=== PATIENT | female | born 1950 | race Caucasian/White ===

== ENCOUNTER → 2019-06-26 11:26 | Outpatient (CLI) | payer MEDICARE, SELFPAY ==
--- NOTE | ~2019-06-26 | MM_ITS ---
EXAMINATION: MM screening [facility] BI w jeison HISTORY: Screening mammogram TECHNIQUE: Craniocaudal and mediolateral oblique 3-D tomosynthesis images were obtained and synthetic 2-D images were generated. CAD analysis was submitted and interpreted. COMPARISON: Comparison to multiple prior studies sequentially, with oldest reviewed study dated 07/2013. BREAST PARENCHYMAL COMPOSITION: There are scattered areas of fibroglandular density. FINDINGS: There are benign bilateral breast calcifications. There is no evidence of suspicious mass, calcification, or architectural distortion to suggest malignancy in either breast. There has been no suspicious interval change. IMPRESSION: 1. No mammographic evidence of malignancy. 2. Recommend routine screening mammography in one year. BI-RADS Category 2: Benign finding(s). Reviewed, dictated and finalized at location A.
== END ==
PROVIDERS: PCP Family Medicine; Visit Provider Obstetrics & Gynecology
DX: Z12.31 Encounter for screening mammogram for malignant neoplasm of breast (principal)
CPT/HCPCS: 77063; 77067

== ENCOUNTER → 2020-08-22 13:22 | Outpatient (CLI) | payer MEDICARE, SELFPAY ==
--- NOTE | ~2020-08-22 | MM_ITS ---
EXAMINATION: MM screening [facility] BI w jeison HISTORY: Screening TECHNIQUE: Craniocaudal and mediolateral oblique 3-D tomosynthesis images were obtained and synthetic 2-D images were generated. CAD analysis was submitted and interpreted. COMPARISON: Comparison to multiple prior studies sequentially, with oldest reviewed study dated 12/2013. BREAST PARENCHYMAL COMPOSITION: Breast composed of scattered areas of fibroglandular density. FINDINGS: There are benign bilateral breast calcifications. There is no evidence of suspicious mass, calcification, or architectural distortion to suggest malignancy in either breast. There has been no suspicious interval change. IMPRESSION: 1. No mammographic evidence of malignancy. 2. Recommend routine screening mammography in one year. BI-RADS Category 2: Benign finding(s). Reviewed, dictated and finalized at location A.
== END ==
PROVIDERS: PCP Family Medicine; Visit Provider Obstetrics & Gynecology
DX: Z12.31 Encounter for screening mammogram for malignant neoplasm of breast (principal)
CPT/HCPCS: 77063; 77067

== ENCOUNTER → 2020-12-26 10:40 | Outpatient (CLI) | payer MEDICARE, SELFPAY ==
--- NOTE | ~2020-12-26 | XR_ITS ---
XR knee RT min 4V, XR knee LT min 4V 12/26/2020 11:09 Indication: Knee pain Procedure: 4 views each knee Comparison: No prior studies for comparison. Findings: No fracture, subluxation or dislocation. No significant joint space narrowing. No joint eff usion. Normal anatomic alignment. Impression: 1: No significant bone or joint abnormality. Reviewed, dictated and finalized at location A. Impression: 1: No significant bone or joint abnormality. Impression: 1: No significant bone or joint abnormality.
== END ==
PROVIDERS: PCP Family Medicine; Visit Provider Family Medicine
DX: M25.562 Pain in left knee (principal); M25.561 Pain in right knee
CPT/HCPCS: 73564

== ENCOUNTER → 2021-08-24 12:33 | Outpatient (CLI) | payer MEDICARE, SELFPAY ==
--- NOTE | ~2021-08-24 | MM_ITS ---
EXAMINATION: MM screening [facility] BI w jeison HISTORY: Screening mammogram TECHNIQUE: Craniocaudal and mediolateral oblique 3-D tomosynthesis images were obtained and synthetic 2-D images were generated. CAD analysis was submitted and interpreted. COMPARISON: 08/22/2020, 06/26/2019, 06/13/2018 BREAST PARENCHYMAL COMPOSITION: There are scattered areas of fibroglandular density. FINDINGS: Scattered benign-appearing calcifications are present. There is no suspicious mass, calcifi cation, or architectural distortion to suggest malignancy in either breast. There has been no suspici ous interval change. IMPRESSION: 1. No mammographic evidence of malignancy. 2. Recommend routine screening mammography in one year. BI-RADS Category 2: Benign finding(s). Reviewed, dictated and finalized at location A.
== END ==
PROVIDERS: PCP Family Medicine; Visit Provider Obstetrics & Gynecology
DX: Z12.31 Encounter for screening mammogram for malignant neoplasm of breast (principal)
CPT/HCPCS: 77063; 77067

== ENCOUNTER → 2021-09-13 09:29 | Outpatient (CLI) | payer MEDICARE, SELFPAY ==
--- NOTE | ~2021-09-13 | MR_ITS ---
EXAMINATION: MR knee LT wo con DATE: 09/13/2021 10:08 INDICATION: Left knee pain. TECHNIQUE: Magnetic resonance imaging (MRI) of the left knee was performed without intravenous contra st. Sequences included axial PD-weighted FS FSE, coronal PD-weighted FSE and PD-weighted FS FSE, sagi ttal PD-weighted FSE, and sagittal T2-weighted FS FSE. COMPARISON: Left knee radiographs 12/26/2020 FINDINGS: Medial compartment: Medial meniscus is intact. There is cartilage surface irregularity of tibial condyle femoral condyle. There are tiny osteophytes. Lateral compartment: Lateral meniscus is normal. Lateral compartment cartilage is normal. There are tiny osteophytes. Patellofemoral compartment: There is cartilage surface irregularity of patellar lateral facet. There is cartilage surface irregul arity of trochlea. Ligaments and tendons: The anterior and posterior cruciate ligaments are normal. Medial collateral ligament is normal. There are changes of prior sprain of fibular collateral ligament characterized by thickening and increased signal intensity approximately. There is mild patellar tendinopathy. Fluid: There is no knee joint effusion. There is a moderate-sized Carter's cyst. There is mild prepatellar an d superficial infrapatellar bursitis. IMPRESSION: 1. Mild chondrosis of medial and patellofemoral compartments. 2. Moderate-sized Carter's cyst. Reviewed, dictated and finalized at location A.
== END ==
PROVIDERS: PCP Family Medicine; Visit Provider Orthopaedic Surgery
DX: M71.22 Synovial cyst of popliteal space [Baker], left knee (principal); M71.562 Other bursitis, not elsewhere classified, left knee
CPT/HCPCS: 73721

== ENCOUNTER → 2022-05-04 08:44 | Outpatient (CLI) | payer MEDICARE, SELFPAY ==
--- NOTE | ~2022-05-04 | MMUS_ITS ---
EXAMINATION: MM diagnostic [facility] RT w jeison, US breast RT limited HISTORY: Palpable right breast abnormality TECHNIQUE: Additional 3-D tomosynthesis images of the right breast were performed and synthetic 2-D i mages were generated. CAD analysis was submitted and interpreted. High resolution Limited right breas t ultrasound was performed. COMPARISON: Comparison to multiple prior studies sequentially, with oldest reviewed study dated 05/26. BREAST PARENCHYMAL COMPOSITION: Breast composed of scattered areas of fibroglandular density FINDINGS: MAMMOGRAPHIC FINDINGS: The right breast is stable. No new masses, calcifications or architectural distortion in the right br east to suggest malignancy. ULTRASOUND: Limited right breast ultrasound: Normal heterogeneous echotexture in the area of palpable concern. No suspicious discrete solid or cystic mass. IMPRESSION: 1. No evidence for malignancy in the right breast. 2. Routine yearly screening mammogram and regular clinical breast examination are recommended. BI-RADS Category 2: Benign finding(s). Reviewed, dictated and finalized at location A. COLLECTOR IMPRESSION: 1. No evidence for malignancy in the right breast. 2. Routine yearly screening mammogram and regular clinical breast examination a re recommended. BI-RADS Category 2: Benign finding(s).
== END ==
PROVIDERS: PCP Family Medicine; Visit Provider Obstetrics & Gynecology
DX: N63.15 Unspecified lump in the right breast, overlapping quadrants (principal)
CPT/HCPCS: 76642; 77061; 77065; G0279

== ENCOUNTER → 2022-10-15 16:19 | Outpatient (CLI) | payer MEDICARE, SELFPAY ==
--- NOTE | ~2022-10-15 | XR_ITS ---
EXAMINATION: XR_[id number]_CR DATE: 10/15/2022 16:31 INDICATION: Neck pain. TECHNIQUE: 5 views of cervical spine were obtained. COMPARISON: None. FINDINGS: There is 2 mm anterolisthesis of C4 on C5 and 2 mm retrolisthesis of C5 on C6 and C6 on C7. There is 6 degrees dextrocurvature of cervical spine. Vertebral body heights are normal. There is mi ldly decreased disc height at C4-C5 and severely decreased disc height at C5-C6 and C6-C7. There is m ultilevel uncovertebral joint osteoarthritis, severe bilaterally at C5-C6 and C6-C7. There is multile luanne facet joint osteoarthritis, severe on the left at C4-C5. There is mild central canal stenosis at C4-C5, C5-C6, and C6-C7. No prevertebral soft tissue swelling. IMPRESSION: 1. Severe cervical spondylosis. Reviewed, dictated and finalized at location E.
== END ==
PROVIDERS: PCP Family Medicine; Visit Provider Family Medicine
DX: M54.2 Cervicalgia (principal); M43.02 Spondylolysis, cervical region
CPT/HCPCS: 72040

== ENCOUNTER → 2022-10-30 13:56 | Outpatient (CLI) | payer MEDICARE, SELFPAY ==
--- NOTE | ~2022-10-30 | MM_ITS ---
EXAMINATION: MM screening [facility] BI w jeison HISTORY: Screening mammogram TECHNIQUE: Craniocaudal and mediolateral oblique 3-D tomosynthesis images were obtained and synthetic 2-D images were generated. CAD analysis was submitted and interpreted. COMPARISON: 05/04/2022 diagnostic right mammogram and limited right breast ultrasound 08/24/2021, 08/22/2020 bilateral screening mammogram examinations BREAST PARENCHYMAL COMPOSITION: There are scattered areas of fibroglandular density. FINDINGS: Numerous bilateral benign calcifications, including calcified microhematomas and particular ly numerous benign secretory calcifications. There is no evidence of suspicious mass, calcification, or architectural distortion to suggest malignancy in either breast. There has been no suspicious inte rval change. IMPRESSION: 1. No mammographic evidence of malignancy. 2. Recommend routine screening mammography in one year. BI-RADS Category 2: Benign finding(s). Reviewed, dictated and finalized at location L.
== END ==
PROVIDERS: PCP Obstetrics & Gynecology; Visit Provider Obstetrics & Gynecology
DX: Z12.31 Encounter for screening mammogram for malignant neoplasm of breast (principal)
CPT/HCPCS: 77063; 77067

== ENCOUNTER 2023-02-04 09:26 | Day surgery (SDC) | payer MEDICARE, SELFPAY ==
--- NOTE | 2023-02-01 14:08 | WPDANESEPPF ---
Anes - Initial Pre Proc Eval Procedure: Operation Date: 02/04/23 13:00 Proposed Procedures p Colonoscopy - Leandro Hwang MD Date/Time: 02/01/23 14:08 Surgeon: Leandro Hwang MD Pre Op Diagnosis: History of colon polyps Patient Data Age: 72 Gender: F Height: 1.6 m Weight: 77 kg Allergies Allergy/AdvReac Type Severity Reaction Status Date / Time adhesive Allergy Intermediate RASH Verified 02/04/23 11:51 codeine Allergy Intermediate unknown Verified 02/04/23 11:51 Penicillins Allergy Intermediate unknown Verified 02/04/23 11:51 Aminoglycosides Allergy Mild BAD Verified 02/04/23 11:51 HEADACHES hydrocortisone Allergy Mild BAD Verified 02/04/23 11:51 HEADACHES neomycin Allergy Mild BAD Verified 02/04/23 11:51 HEADACHES propoxyphene Allergy Mild N/V Verified 02/04/23 11:51 Quinolones Allergy Mild N/V Verified 02/04/23 11:51 levofloxacin Allergy Unknown unknown Verified 02/04/23 11:51 polymyxin B Allergy Unknown BAD Verified 02/04/23 11:51 HEADACHE Home Medications Medication Instructions Recorded Confirmed Type atorvastatin 20 mg tablet 20 mg PO DAILY 06/30/21 02/04/23 History montelukast 10 mg tablet 10 mg PO QHS 06/30/21 02/04/23 History multivit with min-folic 1 tablet PO DAILY 04/17/22 02/04/23 History acid-lutein 400 mcg-250 mcg chewable tablet (Centrum Silver) omega-3 fatty acids-fish oil 360 1 cap PO DAILY 04/17/22 02/04/23 History mg-1,200 mg capsule (Fish Oil) nystatin 100,000 unit/gram topical 1 applic topical BID #60 grams 07/24/22 02/04/23 Rx powder (Nystop) dextromethorphan-guaifenesin ER 60 1 tablet PO Q12H 08/10/22 02/04/23 History mg-1,200 mg tab,extend release,12hr (Mucinex DM) omeprazole magnesium 20 mg 20 mg PO DAILY #90 tabs 10/15/22 02/04/23 Rx tablet,delayed release (Prilosec OTC) cholecalciferol (vitamin D3) 25 25 mcg PO DAILY 01/22/23 02/04/23 History mcg (1,000 unit) capsule sodium,potassium,mag sulfates 17.5 See Rx Instructions PO .COMPLEX 01/25/23 02/04/23 Rx gram-3.13 gram-1.6 gram oral soln #354 mL (Suprep Bowel Prep Kit) Patient hx anesthesia problems: none Family hx anesthesia problems: none Results Review: All pre-operative results and documents have been reviewed as part of the pre-operative evaluation. [facility] Past Medical History Medical History (Updated 02/01/23 @ 14:09 by Rashaad Pablo DO) Arthritis Gastro-esophageal reflux disease without esophagitis High cholesterol Mild cognitive impairment Personal history of colonic polyps Surgical History Surgical History History of carpal tunnel surgery History of ear surgery x2 History of total abdominal hysterectomy 06/02/03 [facility]--fibroid uterus, irregular bleeding Normal colonoscopy 02/2013 Family History Family History Sibling Malignant neoplasm of prostate brother Social History Social History Smoking status: Never smoker Tobacco type: cigarettes Smoking end date: 04/08/79 Alcohol intake: current Alcohol use details: occassional Substance use: never Substance use type: does not use Lack of Transportation: No Lack of Food: Never True Current Housing: I Have Housing Concerned About Future Housing: No Difficulty Paying Gas/Electric Bills: No Difficulty Paying for Meds: No Currently Unemployed: YES Education: High School Diploma/GED Living arrangements: with family Additional living arrangements comments: spouse Occupation/Education: retired Gender identity (if verbalized by the patient): Female Sexual Orientation (if Verbalized by the Patient): Straight or Heterosexual Spiritual care concerns: No Anes - Eval Final PreProcedure Day of Procedure 02/01/23 14:08 Patient weight: obese Heart: regular rate and rhythm L
[2023-02-04 11:52] VITALS: BP 126/82; PULSE 66; RESP 16; O2SAT 98
--- NOTE | 2023-02-04 12:01 | PM.HPGS ---
History of Present Illness History of Present Illness Consent: Risks, benefits, and alternatives have been discussed and questions answered. Patient agrees to proceed with procedure. Chief complaint: History of colon polyps Narrative: Agnieszka Quiroga is a 72 year old female Presents for screening colonoscopy. Patient's current weight appetite and bowel movements are normal. Patient denies abdominal pain. She has had no bleeding. Family history may include a history of colon polyps but patient is somewhat uncertain about this. Patient had an adenomatous colon polyp removed from the colon most recently in 2018. Review of Systems Review of Systems: Review of systems noncontributory. [facility] Past Medical History Medical History (Updated 02/01/23 @ 14:09 by Rashaad Pablo DO) Arthritis Gastro-esophageal reflux disease without esophagitis High cholesterol Mild cognitive impairment Personal history of colonic polyps Surgical History Surgical History History of carpal tunnel surgery History of ear surgery x2 History of total abdominal hysterectomy 06/02/03 [facility]--fibroid uterus, irregular bleeding Normal colonoscopy 02/2013 Family History Family History Sibling Malignant neoplasm of prostate brother Social History Social History Smoking status: Never smoker Tobacco type: cigarettes Smoking end date: 04/08/79 Alcohol intake: current Alcohol use details: occassional Substance use: never Substance use type: does not use Lack of Transportation: No Lack of Food: Never True Current Housing: I Have Housing Concerned About Future Housing: No Difficulty Paying Gas/Electric Bills: No Difficulty Paying for Meds: No Currently Unemployed: YES Education: High School Diploma/GED Living arrangements: with family Additional living arrangements comments: spouse Occupation/Education: retired Gender identity (if verbalized by the patient): Female Sexual Orientation (if Verbalized by the Patient): Straight or Heterosexual Spiritual care concerns: No Meds Home Medications and Allergies Home Medications Medication Instructions Recorded Confirmed Type atorvastatin 20 mg tablet 20 mg PO DAILY 06/30/21 02/04/23 History montelukast 10 mg tablet 10 mg PO QHS 06/30/21 02/04/23 History multivit with min-folic 1 tablet PO DAILY 04/17/22 02/04/23 History acid-lutein 400 mcg-250 mcg chewable tablet (Centrum Silver) omega-3 fatty acids-fish oil 360 1 cap PO DAILY 04/17/22 02/04/23 History mg-1,200 mg capsule (Fish Oil) nystatin 100,000 unit/gram topical 1 applic topical BID #60 grams 07/24/22 02/04/23 Rx powder (Nystop) dextromethorphan-guaifenesin ER 60 1 tablet PO Q12H 08/10/22 02/04/23 History mg-1,200 mg tab,extend release,12hr (Mucinex DM) omeprazole magnesium 20 mg 20 mg PO DAILY #90 tabs 10/15/22 02/04/23 Rx tablet,delayed release (Prilosec OTC) cholecalciferol (vitamin D3) 25 25 mcg PO DAILY 01/22/23 02/04/23 History mcg (1,000 unit) capsule sodium,potassium,mag sulfates 17.5 See Rx Instructions PO .COMPLEX 01/25/23 02/04/23 Rx gram-3.13 gram-1.6 gram oral soln #354 mL (Suprep Bowel Prep Kit) Allergies Allergy/AdvReac Type Severity Reaction Status Date / Time adhesive Allergy Intermediate RASH Verified 02/04/23 11:51 codeine Allergy Intermediate unknown Verified 02/04/23 11:51 Penicillins Allergy Intermediate unknown Verified 02/04/23 11:51 Aminoglycosides Allergy Mild BAD Verified 02/04/23 11:51 HEADACHES hydrocortisone Allergy Mild BAD Verified 02/04/23 11:51 HEADACHES neomycin Allergy Mild BAD Verified 02/04/23 11:51 HEADACHES propoxyphene Allergy Mild N/V Verified 02/04/23 11:51 Quinolones Allergy Mild N/V Verified 02/04/23 11:51 levofloxac
[2023-02-04] MEDS: LACTATED RINGERS 1,000 ML 150 ML IV CONT (12:05)
[2023-02-04] MEDS: SIMETHICONE ORAL SUSPENSION 20 MG/0.3 ML 30 ML BOTTLE 0.6 ML IRRIGATION (12:28)
[2023-02-04 12:35] VITALS: BP 110/62; PULSE 64; RESP 16; O2SAT 98
[2023-02-04 12:45] VITALS: BP 113/62; PULSE 58; RESP 17; O2SAT 99
[2023-02-04 12:55] VITALS: BP 129/80; PULSE 59; RESP 16; O2SAT 100
--- NOTE | 2023-02-04 13:36 | WPDANESPN ---
Anes - Prog Note Post-Op Date/Time: 02/04/23 13:36 Cardiovascular status: normal Respiratory status: normal Airway patency: baseline Mental status: baseline Post-Op hydration status: normal Vital Signs: Last Vital Signs Pulse 59 L 02/04/23 12:55 Resp 16 02/04/23 12:55 BP 129/80 02/04/23 12:55 Pulse Ox 100 02/04/23 12:55 O2 Del Method Room Air 02/04/23 12:55 Pain Score (VAS): 0 I/O: Intake & Output 02/03/23 02/04/23 02/04/23 23:59 07:59 15:59 Intake Total 400 Balance 400 Post-procedural complaints: none Patient Feedback: Patient satisfied with anesthetic care. Other Findings: Patient vital signs back to baseline. Patient denies nausea and vomiting. Patient's pain under control. Patient OK for discharge.
== END 2023-02-04 13:10 | disposition home or self-care (01) ==
PROVIDERS: PCP Family Medicine; Visit Provider Internal Medicine Gastroenterology
PROC: 0DJD8ZZ Inspection of Lower Intestinal Tract, Via Natural or Artificial Opening Endoscopic (ICD-10-PCS; CPT 45378; principal; 2023-02-04 13:00)
DX: Z86.010 Personal history of colon polyps (principal); K57.30 Diverticulosis of large intestine without perforation or abscess without bleeding; K64.8 Other hemorrhoids
CPT/HCPCS: 45378

== ENCOUNTER 2023-11-10 13:33 | Emergency (ER) | payer MEDICARE, SELFPAY ==
--- NOTE | ~2023-11-10 | XR_ITS ---
XR_[id number]_CR DATE: 11/10/2023 14:01 INDICATION: Fall TECHNIQUE: AP and lateral views COMPARISON: None FINDINGS: There is a linear nondisplaced patella inferiorly. No appreciable joint effusion is evident . No other fracture or dislocation is noted. No periosteal reaction or bone destruction Joint spaces are relatively preserved. No radiopaque intra-articular loose body or chondrocalcinosis. IMPRESSION: Linear nondisplaced inferior patellar fracture Reviewed, dictated and finalized at Location A. Reviewed, dictated and finalized at location J.
--- NOTE | ~2023-11-10 | XR_ITS ---
XR ankle RT min 3V DATE: 11/10/2023 14:01 INDICATION: Fall. Pain, swelling TECHNIQUE: 4 views COMPARISON: None FINDINGS: There is moderate lateral soft tissue swelling. There is a subtle nondisplaced cortical fra cture at the lateral margin near the tip of the lateral malleolus. The medial and posterior malleolus are intact. The ankle mortise appears preserved. Mild prominent plantar calcaneal enthesopathy. IMPRESSION: Nondisplaced cortical fracture near the lateral tip of the lateral malleolus with moderat e overlying soft tissue swelling Reviewed, dictated and finalized at location J. IMPRESSION: Nondisplaced cortical fracture near the lateral tip of the lateral malleolus with moderate overlying soft tissue swelling
[2023-11-10 13:41] VITALS: BP 139/91; PULSE 70; RESP 16; TEMP 36.6; O2SAT 100
--- NOTE | 2023-11-10 13:43 | ED.LOWEXIN ---
HPI - Extremity Injury (Lower) General Chief Complaint: Extremity Injury, Lower Stated Complaint: Left Knee/Right Ankle Pain Time Seen by Provider: 11/10/23 13:45 Source: patient and RN notes reviewed Mode of arrival: ambulatory Limitations: no limitations History of Present Illness HPI Narrative: 73 year old female presents with concern for right ankle pain and swelling and left knee pain. She reports an abrasion on her left knee. She reports pain at rest and pain with bending or weight bearing. She fell today MD complaint: knee injury and ankle injury Related Data Home Medications Medication Instructions Recorded Confirmed atorvastatin 20 mg tablet 20 mg PO DAILY 06/30/21 11/10/23 montelukast 10 mg tablet 10 mg PO QHS 06/30/21 11/10/23 multivit with min-folic 1 tablet PO DAILY 04/17/22 11/10/23 acid-lutein 400 mcg-250 mcg chewable tablet (Centrum Silver) cholecalciferol (vitamin D3) 25 25 mcg PO DAILY 01/22/23 11/10/23 mcg (1,000 unit) capsule Allergies Allergy/AdvReac Type Severity Reaction Status Date / Time adhesive Allergy Intermediate RASH Verified 11/10/23 13:43 codeine Allergy Intermediate unknown Verified 11/10/23 13:43 Penicillins Allergy Intermediate unknown Verified 11/10/23 13:43 Aminoglycosides Allergy Mild BAD Verified 11/10/23 13:43 HEADACHES hydrocortisone Allergy Mild BAD Verified 11/10/23 13:43 HEADACHES neomycin Allergy Mild BAD Verified 11/10/23 13:43 HEADACHES propoxyphene Allergy Mild N/V Verified 11/10/23 13:43 Quinolones Allergy Mild N/V Verified 11/10/23 13:43 levofloxacin Allergy Unknown unknown Verified 11/10/23 13:43 polymyxin B Allergy Unknown BAD Verified 11/10/23 13:43 HEADACHE Review of Systems Review of Systems: CONSTITUTIONAL: Denies malaise, chills, sweats, or fever. SKIN: Denies rash or itching, open skin, laceration, abrasion, redness, warmth MUSCULOSKELETAL: Reports left knee pain and right ankle pain and swelling NEUROLOGIC: Denies numbness, weakness All systems reviewed & are unremarkable except as noted in HPI and below PMFSH Past Medical History Medical History Arthritis Gastro-esophageal reflux disease without esophagitis High cholesterol Mild cognitive impairment Personal history of colonic polyps Surgical History Surgical History History of carpal tunnel surgery History of ear surgery x2 History of total abdominal hysterectomy 06/02/03 [facility]--fibroid uterus, irregular bleeding Normal colonoscopy 02/2013 Family History Family History Sibling Malignant neoplasm of prostate brother Social History Social History (Updated 06/03/23 @ 11:15 by Annabelle Ross MA) Smoking status: Never smoker Tobacco type: cigarettes Smoking end date: 04/08/79 Alcohol intake: current Alcohol use details: occassional Substance use: never Substance use type: does not use Do You Feel Safe in your Home?: Yes Lack of Transportation: No Lack of Food: Never True Current Housing: I Have Housing Concerned About Future Housing: No Difficulty Paying Gas/Electric Bills: No Difficulty Paying for Meds: No Currently Unemployed: YES Education: High School Diploma/GED Difficulty w/ Childcare or Family Care: No Living arrangements: with family Additional living arrangements comments: spouse Occupation/Education: retired Gender identity (if verbalized by the patient): Female Sexual Orientation (if Verbalized by the Patient): Straight or Heterosexual Spiritual care concerns: No Comments At time of signature, agree with nursing past medical, surgical, social and family history. There is no relevant family history pertinent to the presenting complaint Exam Narrative: GENERAL: Well-appearing, well-nourished, and in no acute distress. HEAD: Norm
== END 2023-11-10 14:35 | disposition home or self-care (01) ==
PROVIDERS: Emergency Provider Nurse Practitioner; PCP Family Medicine
DX: S82.002A Unspecified fracture of left patella, initial encounter for closed fracture (principal); S82.64XA Nondisplaced fracture of lateral malleolus of right fibula, initial encounter for closed fracture; W19.XXXA Unspecified fall, initial encounter; Z87.891 Personal history of nicotine dependence; M19.90 Unspecified osteoarthritis, unspecified site; K21.9 Gastro-esophageal reflux disease without esophagitis; E78.00 Pure hypercholesterolemia, unspecified
CPT/HCPCS: 73560; 73610; 99214; G0463; L1830

== ENCOUNTER 2023-12-04 10:35 | Outpatient (CLI) | payer MEDICARE, SELFPAY ==
--- NOTE | ~2023-12-04 | XR_ITS ---
Left Knee Technique: AP, lateral, and sunrise views were obtained. Clinical History: Fracture patella Findings: There is a transverse, nearly nondisplaced fracture at the inferior pole the patella. No ot her fracture or dislocation seen. Joint spaces are preserved without degenerative or erosive change. Soft tissues are unremarkable. No joint effusion is seen. Impression: Transverse, nearly nondisplaced fracture of the inferior pole the patella. Reviewed, dictated and finalized at location M. Impression: Transverse, nearly nondisplaced fracture of the inferior pole the patella.
--- NOTE | ~2023-12-04 | XR_ITS ---
XR ankle RT min 3V 12/04/2023 11:22 Indication: Right ankle pain Procedure: 4 views right ankle Comparison: 11/10/2023 Findings: There is an avulsion fracture distal tip of the lateral malleolus with overlying soft tissu e swelling. Ankle mortise intact. Small degenerative calcaneal enthesophyte at the plantar surface. N o foreign bodies. Impression: 1: Stable alignment of avulsion fracture distal tip of the fibula. Reviewed, dictated and finalized at location B. Impression: 1: Stable alignment of avulsion fracture distal tip of the fibula.
== END 2023-12-04 10:36 ==
PROVIDERS: PCP Orthopaedic Surgery; Visit Provider Orthopaedic Surgery
DX: S82.61XA Displaced fracture of lateral malleolus of right fibula, initial encounter for closed fracture (principal); S82.032A Displaced transverse fracture of left patella, initial encounter for closed fracture; X58.XXXA Exposure to other specified factors, initial encounter
CPT/HCPCS: 73562; 73610

== ENCOUNTER 2024-06-02 10:42 | Outpatient (CLI) | payer MEDICARE, SELFPAY ==
--- NOTE | ~2024-06-02 | DEXA_ITS ---
Bone Density Report Name: JAZZMINE GARCIA Age: 73 Sex: Female Ethnicity: White Date of : 1950 Indication: postmenopausal; screening for osteoporosis; height loss; prior fracture; Referring Provider: RUPERTO WYNN Study: Bone densitometry was performed. Exam Date: June 02, 2024 Accession number: [id number] Bone Density: Region BMD T-score Z-score Classification AP Spine(L1-L4) 0.889 -1.4 0.8 Osteopenia Femoral Neck (Left) 0.678 -1.5 0.4 Osteopenia Total Hip (Left) 0.794 -1.2 0.4 Osteopenia Femoral Neck (Right) 0.628 -2.0 0.0 Osteopenia Total Hip (Right) 0.755 -1.5 0.1 Osteopenia Femoral Neck Mean 0.653 -1.8 0.2 Osteopenia Total Hip Mean 0.774 -1.4 0.3 Osteopenia World Health Organization criteria for BMD impression classify patients as: Normal (T-score at or above -1.0), Osteopenia (T-score between -1.0 and -2.5), or Osteoporosis (T-score at or below -2.5). Clinical Information Provided by Patient: Has had a low trauma fracture Patient maximum height was 62 Menopause Age: 51 No regular weight bearing exercise Drinks caffeinated beverages Onset of menses at age 16 Number of children 1 Impression: The patient has low bone mass, based on the Right Femoral Neck T-score. The patient has risk factors, including: previous fracture. Discussion: BONE DENSITY IS LOW AT ONE OR MORE SKELETAL SITES. This patient's lowest T-score is low at one or more skeletal sites. It meets the World Health Organization's (WHO) criteria for ?low bone mass? (T-score between -1.0 and -2.5). The patient's 10-year risk of fracture as calculated by FRAX is less than the threshold where pharmacological therapy is recommended by the National Osteoporosis Foundation (NOF). However, all treatment decisions require clinical judgment and consideration of individual patient factors, including patient preferences, comorbidities, previous drug use, risk factors not captured in the FRAX model (e.g., frailty, falls, vitamin D deficiency, increased bone turnover, interval significant decline in bone density) and possible under or overestimation of fracture risk by FRAX. The patient should follow a healthful lifestyle (good nutrition with adequate calcium and vitamin D, and appropriate weight-bearing exercise). Follow-Up: Consider repeating this study in 2 to 3 years to reassess this patient's status, or sooner if there is some new clinical indication. Reported by: JOSEE on 06/02/2024 10:58:00 AM. Reviewed, dictated and finalized at location A.
== END 2024-06-02 10:43 | disposition home or self-care (01) ==
PROVIDERS: PCP Family Medicine; Visit Provider Family Medicine
DX: Z78.0 Asymptomatic menopausal state (principal)
CPT/HCPCS: 77080